=== PATIENT | female | born 1965 | race African-American/Black ===

== ENCOUNTER → 2016-07-08 | Outpatient (CLI) | payer OTHER ==
--- NOTE | ~2016-07-08 | MR113 ---
[facility] A Service of [facility] & [facility] RADIOLOGY TEXT RESULTS PATIENT: JUAN MANUEL LINCOLN LOCATION: [facility] : 63 UNIT #: [id number] AGE: [address]: Demario Henry SEX: F ORDER DR: [id number] [place] [id number] O MR#: [id number] #: [id number] NAME: JUAN MANUEL LINCOLN : 1965 SEX: F STUDY DATE/TIME: 07/08/2016 9:58 UNIT: [facility] ROOM: STUDY DESCRIPTION: MR Lumbar Wo Contrast Attending Physician: Demario Henry Referring Physician: Demario Henry Ordering Physician: Tomi Henry Pa-C Primary Care Physician: Demario Henry MRI CENTER REPORT This report is preliminary unless electronic signature is present. EXAM Lumbar spine MRI without contrast HISTORY Radiculopathy, increasing low back pain, right lower extremity radiculopathy increasing muscle spasms since an injury. Last accident 09/29/12 COMMENTS MRI lumbar spine performed without contrast using routine 1.5T imaging technique. Wide bore system utilized. No comparison. FINDINGS There is dextroconvex scoliosis on the coronal scanogram which might be positional. Sagittal alignment is essentially normal. There is mild disc desiccation L3-L4 through L5-S1 levels. Conus medullaris terminates T12-L1 and is normal. The bone marrow signal intensity is unremarkable allowing for fatty marrow replacement in the sacrum at the S2 segment and the ala possibly related to prior pelvic trauma with subsequent healing. Please correlate with the history of pelvic injury. No acute fracture is suspected. At least some arthritis partly seen in the left side sacroiliac joint. At L1-2 there is mild bilateral facet degenerative change. No focal disc protrusion or extrusion canal or foraminal impingement. At L2-3, there is mild bilateral facet degenerative change and ligamentum flavum thickening. There is minor posterior disc bulge but no canal stenosis or foraminal impingement. At L3-4, moderate facet degenerative change bilaterally. Moderate ligamentum flavum thickening. Mild concentric disc bulge. Mild central [facility] A Service of [facility] & [facility] RADIOLOGY TEXT RESULTS PATIENT: JUAN MANUEL LINCOLN LOCATION: [facility] : 63 UNIT #: [id number] AGE: [address]: Demario Henry SEX: F ORDER DR: canal stenosis and mass effect on the bilateral-lateral recesses and mild foraminal narrowing on the left. L4-5, [id number] bilateral facet degenerative change with mild broad-based posterior disc bulge. Mild ligamentum flavum thickening. Mild effacement of the anterior thecal sac and mass effect on the bilateral-lateral recesses but no significant central canal stenosis. There is approximately moderate foraminal narrowing bilaterally left greater than right. L5-S1, [id number] facet degenerative change bilaterally. Minor posterior disc bulge. No canal stenosis. Approximately moderate foraminal narrowing bilaterally. I believe the patient has somewhat developmentally short pedicles contributing to the multilevel foraminal impingement. IMPRESSION 1. Findings most suggestive of prior pelvic fracture. See discussion above and correlate with prior pelvic injury. There is some left-sided sacroiliac joint arthritis partly seen. 2. Very mild canal stenosis at the level of L3-4. 3. Multilevel facet degenerative change and multilevel foraminal compromise. See [id number] description above and correlate with radicular symptoms. 4. No focal disc extrusion is seen. 5. Dextroconvex scoliosis on the coronal scanogram might be positional. Dictated by... Loreto Nunez M.D. THIS IS AN ELECTRONICALLY VERIFIED REPORT Loreto Nunez M.D. at 07/09/2016 2:25 PM Tiana TD: 07/08/2016 21:52 JOB #: [id number] MRI CENTER REPORT Page 1 of 1
== END | disposition home or self-care (01) ==
LOC: SMRI 09:45
DX: M54.16 Radiculopathy, lumbar region (principal); M46.1 Sacroiliitis, not elsewhere classified; M48.06 Spinal stenosis, lumbar region; M47.26 Other spondylosis with radiculopathy, lumbar region; M41.9 Scoliosis, unspecified
CPT/HCPCS: 72148